=== PATIENT | male | born 1940 | race Caucasian/White ===

== ENCOUNTER 2019-04-11 11:59 | Inpatient (IN) | payer MEDICARE, MEDICAID ==
[~2019-04-11] VITALS: Ht 172.7 cm; Wt 68.4 kg
[2019-04-25 07:45] VITALS: BP 125/75
== END 2019-04-25 15:53 | disposition home or self-care (01) | DRG 885 ==
LOC: 3E 13:43
PROVIDERS: ADMIT Psychiatry & Neurology Psychosomatic Medicine; ATTEND Psychiatry & Neurology Psychosomatic Medicine
DX: F33.3 Major depressive disorder, recurrent, severe with psychotic symptoms (principal); R45.851 Suicidal ideations; K21.9 Gastro-esophageal reflux disease without esophagitis; G89.29 Other chronic pain; G47.00 Insomnia, unspecified; K59.09 Other constipation; M54.30 Sciatica, unspecified side; R62.7 Adult failure to thrive; Z79.899 Other long term (current) drug therapy; Z98.1 Arthrodesis status; Z87.891 Personal history of nicotine dependence; Z88.6 Allergy status to analgesic agent; Z88.0 Allergy status to penicillin
CPT/HCPCS: 36415; 71045; 80053; 80061; 80307; 81001; 82140; 82607; 84439; 84443; 85025; 86592; 87086; 93005; 92523-GN; G0515-GN